=== PATIENT | female | born 1960 | race Caucasian/White ===

== ENCOUNTER → 2023-08-25 11:20 | Outpatient (REF) | payer OTHER, SELFPAY | LOC: PAVMRI 11:20 | PROVIDERS: ATTENDING PHYSICIAN Physician Assistant Medical | DX: D35.00 Benign neoplasm of unspecified adrenal gland (principal); K76.9 Liver disease, unspecified; K44.9 Diaphragmatic hernia without obstruction or gangrene | CPT/HCPCS: 74183; A9575 ==

== ENCOUNTER → 2024-10-20 13:10 | Outpatient (REF) | payer OTHER, SELFPAY | LOC: WDC 13:10 | PROVIDERS: ATTENDING PHYSICIAN Physician Assistant Medical; OTHER PHYSICIAN Nurse Practitioner Family | DX: Z12.31 Encounter for screening mammogram for malignant neoplasm of breast (principal); D35.02 Benign neoplasm of left adrenal gland | CPT/HCPCS: 74170; 77063; 77067; Q9967 ==